=== PATIENT | male | born 1990 | race Caucasian/White ===

== ENCOUNTER 2023-07-26 17:13 | Emergency (ER) | payer BC, SELFPAY ==
[2023-07-26 17:14] VITALS: BP 163/116; PULSE 96; RESP 18; TEMP 36.1; O2SAT 98; BMI 30.8
--- NOTE | 2023-07-26 17:23 | US_ITS ---
We are attempting to reach an attending provider to discuss findings. An addendum with communication details will be sent when the communication is complete. EXAM: US right lower extremity venous Doppler. HISTORY: RT UPPER CALF PAIN LIMITATIONS: None. THROMBUS: None. AUGMENTATION: Normal. FLUID COLLECTIONS: None. SUPERFICIAL VEINS: Thrombosis of multiple superficial veins in the upper calf. OTHER: None. CONCLUSION: Thrombosis of multiple superficial veins in the upper calf. No evidence of deep venous thrombosis of the right lower extremity. Electronically Signed: Geovanni Pavon MD at 18:32 EDT , US/Venous Duplex Imag/Limited/Uni IMPRESSION: undefined
--- NOTE | 2023-07-26 17:24 | ED.VIS.LOWEX ---
HPI History of Present Illness Chief Complaint: Lower Extremity Injury Narrative Narrative: 33-year-old male past medical history of varicose to the his right lower extremity presents with pain, swelling, and mild redness of his medial right calf that he has had for days, up to a week. He denies any recent trauma. He is having pain over the area of his known varicose vein, radiating downward. He denies any fevers or chills, no chest pain or shortness of breath, no exacerbating or alleviating factors. PFSH PFSH Medical History no medical history Home Medications NK 07/26/23 [History Last Taken Unknown] Allergy/AdvReac Type Severity Reaction Status Date / Time No Known Allergies Allergy Verified 07/26/23 17:15 Social History Smoking Status: Never smoker ROS ROS ED ROS Narrative Constitutional: No fever, no chills. HEENT: No sore throat. No neck pain. No loss of vision. No rhinorrhea. Cardiovascular: No chest pain. No palpitations. No pedal edema. Respiratory: No cough, no shortness of breath. Abdominal: No abdominal pain. No nausea. No vomiting. Genitourinary: No dysuria. No hematuria. Musculoskeletal: No myalgias. No arthralgias. Right medial proximal calf pain in area of varicose vein radiating downward. Neurologic: No headaches. No dizziness. No lightheadedness. Skin: No rash. No change in color. Psychiatric: No depression. No anxiety. EXAM Physical Exam Narrative Exam Narrative: Afebrile. Vital signs noted. HEENT: Normocephalic. Atraumatic. PERRL, EOMI. Neck soft and supple. No point tenderness or step off. Cardiovascular: Regular rate and rhythm. No murmurs, rubs, or gallops appreciated. Respiratory: No tachypnea. Lungs clear to auscultation bilaterally. Gastrointestinal: Abdomen soft, nontender, with normoactive bowel sounds. No rebound or guarding. Neurological: Awake. Alert. Nonfocal, nonlateralizing. Skin: No rash. Normal color. No pallor. Musculoskeletal: No pedal edema. Full range of motion extremities. Mild tenderness to palpation right medial calf proximally and area of a varicose vein with minimal erythema. Palpable dorsalis pedis pulse distally. Full range of motion of knee and ankle. No palpable tenderness right medial thigh. Const Vital Signs: 07/26/23 17:14 Temperature 96.9 F L Temperature Source Temporal Pulse Rate 96 Respiratory Rate 18 Blood Pressure 163/116 H Blood Pressure Mean 131 Pulse Ox 98 Oxygen Delivery Method Room Air MDM MDM MDM Narrative Medical decision making narrative: Concern is for superficial thrombophlebitis the varicose vein versus DVT. I am not concerned for pulmonary embolism at this point as he is not tachycardic, his pulse ox is 98% on room air and he does not have any chest pain or shortness of breath. I have low suspicion for cellulitis as there is no break in the skin. Ultrasound was obtained of the right lower extremity. I discussed the patient's results with the software support technician who states that there is no evidence of deep venous thrombosis, but there is moderate amount of superficial thrombophlebitis in the right medial proximal calf area where he is having pain. I discussed the patient with vascular surgeon, Dr. Lawrence Mcdonough. While he did suggest that the patient be placed on an anticoagulant for symptomatic relief, the patient does not wish to take a blood thinner at this time. Instead, he will take NSAIDs and apply warm compresses to the area and follow-up with vascular surgery for further evaluation and treatment. I feel he can be discharged safely home with follow-up. I stressed the importance of follow-up with vascular surgery. He will take [id number] medications for analgesia. I do not feel narcotics are indicated. Return instructions to the emergency department were reviewed. Disposition is discharged home in stable condition. History & Record Review Additional record(s) reviewed:: No prior records Discharge Plan Triage Chief Complaint: Lower Extremity Injury ED Provider: Iftikhar Connolly Dx/Rx/DC Orders Clinical Impression: Varicose veins of calf, Superficial thrombophlebitis of right leg Instructions: ED Thrombophlebitis, Superficial, ED Varicose Veins Prescriptions: No Action NK Primary Care Provider: Care Physician,No Primary Referrals: Lawrence Mcdonough MD [Med Staff - Active Staff] - 3-5 Days Care Physician,No Primary [Primary Care Provider] - Activity Restrictions/Additional Instructions: Take anti-inflammatories such as ibuprofen or naproxen for pain. Warm compresses to the affected area. Follow-up with Dr. Mcdonough within the next week. You have chosen not to take a blood thinner such as Eliquis or Xarelto at this time for your superficial thrombophlebitis. Disposition Disposition: Home, Self Care
[2023-07-26 18:36] VITALS: BP 126/77; PULSE 62; RESP 15; O2SAT 99
== END 2023-07-26 18:37 | disposition home or self-care (01) ==
LOC: ED 18:12
PROVIDERS: Emergency Provider Emergency Medicine; Visit Provider Emergency Medicine
DX: I80.01 Phlebitis and thrombophlebitis of superficial vessels of right lower extremity (principal)
CPT/HCPCS: 93971; 99282

== ENCOUNTER → 2023-10-05 | Outpatient (CLI) | payer BC, SELFPAY ==
--- NOTE | 2023-10-05 14:50 | VDLE_ITS ---
Reason For Study: Right leg pain RIGHT CFV is compressible, spontaneous, phasic, competent and demonstrates normal augmentation. FV is compressible, spontaneous, phasic, competent and demonstrates normal augmentation. POP V is compressible, spontaneous, phasic, competent and demonstrates normal augmentation. T/P Trunk is compressible. PTV is compressible. RT PerV is compressible. SFJ is INCOMPETENT and measures 1.09 x 1.25 cm. GSV proximal thigh measures 0.72 x 0.83 cm. GSV at knee measures 0.75 x 0.80 cm. GSV INCOMPETENT throughout for greater than 0.5 seconds. ASV at knee is INCOMPETENT for greater than 0.5 seconds and measures 0.47 x 0.46 cm. ASV at knee connects to SSV mid. Thrombus filled variscose veins are noted in the prox-mid calf. INCOMPETENT network project manager is noted 7 cm above the medial malleolus. SSV proximal calf is competent and measures 0.32 x 0.37 cm. Procedure This is a venous duplex using B-mode, color flow and spectral Doppler. Exam performed in department. Patient was scanned in reverse Trendelenburg position during reflux assessment. VL/Venous Duplex US, Unilateral Interpretation Summary Deep veins of the right lower extremity are patent and compressible segmentally . There is no evidence of right lower extremity deep vein thrombosis. The right great sapheno us vein appears patent and compressible segmentally. Positive for reflux in the right saphenofemoral junction, great saphenous vein throughout, accessory saphenous vein at knee, network project manager in distal calf. Superficial thrombosis noted in mid calf varicosities. Ordering Physician: Neelima Mccormick Performed By: Bita Dupree RVT
--- OUTSIDE RECORDS SUMMARY | 2023-10-05 15:14 | XMS RPT_ITS | CCD ---
Author Name Unknown Address [address] [place] [address] Organization [facility] Care Team Providers Care Gaggerman Name Role Phone Unavailable Primary Care Provider Unavailabl e Problems Problem Classification Problem Date Documented Da te Episodic/Chronic Other connective tissue disease (1 source) Pain in right lower limb; Translations: [Pain in right leg] 07-26-2023 Episodic Other connective tissue disease (1 source) Swelling of lower limb; Translations: [Other specified soft tissue disorders] 07-26-2023 Episodic Results Test Name Value Interpretation Reference Range Facil ity Vital Signs Date Time Vital Sign Value Performing Clinician Faci lity 07-26-2023 16:59-0400 Body temperature 98.29 [degF] Diya Elena JAVA PROGRAMMER ANALYST.INDUSTRIAL RELATIONS DIRECTOR Work Phone: [facility] 07-26-2023 16:59-0400 Body weight 114.76 kg Diya Elena JAVA PROGRAMMER ANALYST.INDUSTRIAL RELATIONS DIRECTOR Work Phone: [facility] 07-26-2023 16:59-0400 Diastolic blood pressure 106 mm[Hg] Diya Elena JAVA PROGRAMMER ANALYST.INDUSTRIAL RELATIONS DIRECTOR Work Phone: [facility] 07-26-2023 16:59-0400 Heart rate 88 /min Diya Elena JAVA PROGRAMMER ANALYST.INDUSTRIAL RELATIONS DIRECTOR Work Phone: [facility] 07-26-2023 16:59-0400 Respiratory rate 18 /min Diya Elena JAVA PROGRAMMER ANALYST.INDUSTRIAL RELATIONS DIRECTOR Work Phone: [facility] 07-26-2023 16:59-0400 SaO2% (BldA) [Mass fraction] 98 % Diya Elena JAVA PROGRAMMER ANALYST.INDUSTRIAL RELATIONS DIRECTOR Work Phone: [facility] 07-26-2023 16:59-0400 Systolic blood pressure 159 mm[Hg] Diyabj Elena JAVA PROGRAMMER ANALYST.INDUSTRIAL RELATIONS DIRECTOR Work Phone: [facility] Encounters Encounter Date Encounter Type Care Provider Facility Start: 07-26-2023 End: 07-26-2023 ambulatory Facility:[facility] Start: 07-26-2023 End: 07-26-2023 Patient encounter procedure Diya Elena APRN.INDUSTRIAL RELATIONS DIRECTOR Work Phone: [facility] Care Plan of Treatment Date Care Activity Detail Author Start: 06-01-2023 Influenza vaccination Influenza Vacc ine (#1) [facility] Start: 10-01-2022 Depression Assessment Depression Ass essment [facility] Start: 2009 Urine microalbumin profile DTa P,Tdap,Td Vaccine (1 - Tdap) [facility] Start: 01-08-2008 Hepatitis C Screening Hepatitis C Sc reening [facility] Start: 01-08-2008 HIV Screening HIV Screening [facility] Start: 1990 Covid-19 Vaccine (#1) Covid-19 Vacci ne (#1) [facility] Start: 1990 Hepatitis B Vaccine (1 of 3 - 3-dose series) Hepatitis B Vaccine (1 of 3 - 3-dose series) [facility] Payers Date Payer Category Payer Unknown PENDING 2022 Unknown ANTHEM BLUE CARD POS OOS [id number] 2022-Present [phone] [address] [place] [address] POS [id number] Social History Date Type Detail Facility Start: 07-26-2023 Tobacco smoking stat us NHIS Never smoked tobacco [facility] Start: 07-26-2023 Tobacco use and exposure Smoke less tobacco non-user [facility] Start: 07-26-2023 History of Social function [facility] Start: 07-26-2023 Tobacco use panel [facility] Start: 1990 Sex Assigned At Not on file [facility] Progress note 07-26-2023 Note Date & Type Note Facility 07-26-2023 Note HNO ID: [id number] Author: Diya Elena APRN.CNP Service: ? Author Type: Nurse Practitioner Type: Progress Notes Filed: 07/26/2023 5:09 PM Note Text: 33 year old male with no PMH presents for right leg pain. Acute onset one week ago Endorses he noticed varicose vein increased with bugling. +redness +leg swelling Denies trauma or injury Denies CP or SOB Concerns for possible DVT. US imaging not available at time of exam. Declines virtual ist related to co pay cost when he will present to [facility] History of Present illness Narrative 07-26-2023 Diya Elena APRN.CNP - 07/26/2023 5:07 PM EDT Note Date & Type Note Facility 07-26-2023 History of Presen t illness Narrative 33 year old male with no PMH presents for right leg pain. Acute onset one week ago Endorses he noticed varicose vein increased with bugling. +redness +leg swelling Denies trauma or injury Denies CP or SOB Concerns for possible DVT. US imaging not available at time of exam. Declines virtual ist related to co pay cost when he will present to [facility] documented in this encounter [facility] Evaluation note Note Date & Type Note Facility documented in this encounter [facility] Summary Purpose Family History No Family History Records Found Advance Directives No Advanced Directives Records Found Additional Source Comments Source Comments (unrecognize d section and content) In the event this informatio n is protected by the Federal Confidentiality of Alcohol and Drug Abuse Patient Records regulations: The Federal rules restrict any use of the information to criminally investigate or prosecute any alcohol or drug abuse patient.[facility] Reason for Visit (unrecogniz ed section and content) (unrecognized sect ion and content) No Status Records Found INFORMATION SOURCE (unrecogn ized section and content) FOR RECORDS PERTAINING TO PATIENTS WHO ARE OR HAVE BEEN ENROLLED IN A CHEMICAL DEPENDENCY/SUBSTANCEABUSE PROGRAM, SOME INFORMATION MAY BE OMITTED. This clinical summary was aggregated from multiple sources. Caution should be exercised in using it in the provision of clinical care. This summary normalizes information from multiple sources, and as a consequence, information in this document may materially change the coding, format and clinical context of patient data. In addition, data may be omitted in some cases. CLINICAL DECISIONS SHOULD BE BASED ON THE PRIMARY CLINICAL RECORDS. [facility] [employer] [facility]. provides no warranty or guarantee of the accuracy or completeness of information in this document.
== END | disposition home or self-care (01) ==
PROVIDERS: Referring Provider Physician Assistant; Visit Provider Physician Assistant
DX: I80.01 Phlebitis and thrombophlebitis of superficial vessels of right lower extremity (principal)
CPT/HCPCS: 93971

== ENCOUNTER 2023-11-22 06:54 | Day surgery (SDC) | payer BC, SELFPAY ==
[2023-11-21 09:24] VITALS: BMI 30.8
--- OUTSIDE RECORDS SUMMARY | 2023-11-22 06:57 | XMS RPT_ITS | CCD ---
Author Name Unknown Address [address] [place] [address] Organization [facility] Care Team Providers Care Furnace Converter Name Role Phone Unavailable Primary Care Provider [...] 16:59-0400 Body temperature 98.29 [degF] Diya Elena SNACK BAR ATTENDANT.SECOND WORKER Work Phone: [facility] 07-26-2023 16:59-0400 Body weight 114.76 kg Diya Elena SNACK BAR ATTENDANT.SECOND WORKER Work Phone: [facility] 07-26-2023 16:59-0400 Diastolic blood pressure 106 mm[Hg] Idya Elena SNACK BAR ATTENDANT.SECOND WORKER Work Phone: [facility] 07-26-2023 16:59-0400 Heart rate 88 /min Diya Elena SNACK BAR ATTENDANT.SECOND WORKER Work Phone: [facility] 07-26-2023 16:59-0400 Respiratory rate 18 /min Diya Elena SNACK BAR ATTENDANT.SECOND WORKER Work Phone: [facility] 07-26-2023 16:59-0400 SaO2% (BldA) [Mass fraction] 98 % Diya Elena SNACK BAR ATTENDANT.SECOND WORKER Work Phone: [facility] 07-26-2023 16:59-0400 Systolic blood pressure 159 mm[Hg] Diyabj Elena SNACK BAR ATTENDANT.SECOND WORKER Work Phone: [facility] Encounters Encounter Date Encounter Type Care Provider Facility Start: 07-26-2023 End: 07-26-2023 ambulatory Facility:[facility] Start: 07-26-2023 End: 07-26-2023 Patient encounter procedure Diya Elena APRN.SECOND WORKER Work Phone: [facility] Care Plan of Treatment Date Care Activity Detail Author Start: 06-01-2023 Influenza vaccination Influenza Vacc ine (#1) [facility] Start: 10-01-2022 Depression Assessment Depression Ass essment [facility] Start: 2009 Urine microalbumin profile DTa P,Tdap,Td Vaccine (1 - Tdap) [facility] Start: 01-08-2008 Hepatitis C Screening Hepatitis C Sc reening [facility] Start: 01-08-2008 HIV Screening HIV Screening [facility] Start: 1990 Covid-19 Vaccine (#1) Covid-19 Vacci ne (#1) [facility] Start: 1990 Hepatitis B Vaccine (1 of 3 - 3-dose series) Hepatitis B Vaccine (1 of 3 - 3-dose series) [facility] Payers Date Payer Category Payer Unknown PENDING 2022 Unknown ANTHEM BLUE CARD POS OOS [id number] 2022-Present [phone] [address] [place] [address] POS [id number] Social History Date Type Detail Facility Start: 07-26-2023 Tobacco smoking stat us NHIS Never smoked tobacco [facility] Start: 07-26-2023 Tobacco use and exposure Smoke less tobacco non-user [facility] Start: 07-26-2023 History of Social function [facility] Start: 07-26-2023 Tobacco use panel [facility] Start: 1990 Sex Assigned At Not on file [facility] Progress note 07-26-2023 Note Date & Type Note Facility 07-26-2023 Note HNO ID: [id number] Author: Diya Elena APRN.CNP Service: ? Author [...] pay cost when he will present to [facility] History of Present illness Narrative 07-26-2023 Diya [...] pay cost when he will present to [facility] documented in this encounter [facility] Evaluation note Note Date & Type Note Facility documented in this encounter [facility] Summary Purpose Family History No Family History [...] or prosecute any alcohol or drug abuse patient.[facility] Reason for Visit (unrecogniz ed section and [...] BE BASED ON THE PRIMARY CLINICAL RECORDS. [facility] [employer] [facility]. provides no warranty or guarantee of the accuracy or completeness of information in this document.
[2023-11-22 07:05] LABS: Hematocrit 48.3 % (40-54); Hemoglobin 15.5 g/dL (13.0-16.5); Mean Corp Hgb Conc 32.1 g/dL (32-36); Mean Corpuscular Volume 87.3 fL (80-94); Mean Platelet Vol. 9.7 fl (6.2-12.0); Platelet Count 259 K/mm3 (150-450); RBC Distribution Width CV 13.2 % (11.6-14.6); RBC Distribution Width SD 42.1 fl (35.1-43.9); Red Blood Count 5.53 M/mm3 (4.6-6.2); White Blood Count 7.1 K/mm3 (4.4-11.0)
[2023-11-22 07:18] LABS: Anion Gap 2 (5-15); BUN 19 mg/dL (7-18); Calcium,Total 8.8 mg/dL (8.5-10.1); Chloride 111 mmol/L (98-107); Creatinine, Serum 1.46 mg/dL (0.70-1.30); EST Glomerular Filtration Rate 59 mL/min (>60); Est Glom Filt Rate - Afr Amer 71 mL/min (>60); Estimated Creatinine Clearance 99.74 ml/min; Glucose 104 mg/dL (74-106); Sodium Level 142 mmol/L (136-145)
--- NOTE | 2023-11-22 08:58 | PCM.HP.STD ---
HPI - General HPI Narrative DONNY HAMM, is a 33 M who presents with recurrent right lower extremity superficial phlebitis, saphenous reflux throughout and appeals court associate justice reflux in the calf. He would be an ideal candidate for glue ablation but unfortunately his insurance will not approve chemical ablation under any circumstances. He elects to proceed with RF ablation of thigh GSV. [facility] Medical History Femur fracture (~1998) Home Medications NK 11/22/23 [History Last Taken Unknown] Allergy/AdvReac Type Severity Reaction Status Date / Time No Known Allergies Allergy Verified 10/15/23 15:07 Family History Other High cholesterol Hypertension Social History Smoking Status: Never smoker ROS Constitutional Constitutional: Denies chills, fever(s), frequent falls, lethargy or weakness Eyes Eyes: Denies blind spots, change in vision or loss of vision ENT HEENT: Denies bleeding gums, hoarseness or sore throat Cardiovascular Cardiovascular: Denies abdominal pain, bluish discoloration of hand/feet, chest pain with activity, claudication, cold extremities, cyanosis, dyspnea on exertion, erythema on extremities, irregular heart rhythm, leg edema, leg ulcers, numbness in extremities or weakness in extremities Respiratory/Chest Respiratory/Chest: Denies cough, excessive phlegm production, shortness of breath at rest, shortness of breath with exertion or wheezing Gastrointestinal Gastrointestinal: Denies anorexia, change in stool character, constipation, diarrhea, melena or rectal bleeding Genitourinary Genitourinary: Denies dysuria or hematuria Musculoskeletal Musculoskeletal: Denies abnormal gait Integumentary Integumentary: Reports other Details: ; Denies erythema, non-healing lesions or wounds Neurologic Neurologic: Denies abnormal speech, focal weakness, headache(s), loss of vision, numbness, paresthesias or sensory deficit Hematologic/Lymphatic Hematologic/Lymphatic: Denies easy bleeding, easy bruising or lymphadenopathy Vital Signs Vital Signs Vital Signs: Weight Weight: 253 lb Body Mass Index (BMI) 30.8 Physical Exam Const alert, oriented x3, no apparent distress and healthy appearing General Appearance: cooperative; Negative for combative or lethargic Orientation / Consciousness: awake Exam Limitations: no limitations HEENT Head and Scalp: normocephalic and atraumatic Eyes EOMs intact bilaterally General Eye: normal appearance of both eyes Neck full ROM, no lymphadenopathy, thyroid normal and No no carotid bruits General: trachea midline; Negative for lymphadenopathy or tenderness Thyroid: thyroid normal Lymph Lymphatic: Negative for no lymphadenopathy noted Resp normal respiratory effort and no use of accessory muscles Effort and Inspection: Negative for labored, stridor or audible wheezes Cardio regular rate and regular rhythm Peripheral Pulses: posterior tibial pulses present and dorsalis pedis pulses present Back/Spine Cervical Spine: cervical ROM normal Extremity full ROM, normal capillary refill and no clubbing, cyanosis or edema Skin no rashes or lesions noted and no wounds Neuro oriented x3, CN's II-XII intact bilaterally, no focal motor deficits and no sensory deficits noted Psych thought process normal, cooperative, affect normal, speech normal and activity/motor behavior normal Results Lab / Micro Data 11/22/23 06:58 11/22/23 06:58 Labs: Laboratory Results - last 24 hr 11/22/23 06:58: WBC 7.1, RBC 5.53, Hgb 15.5, Hct 48.3, MCV 87.3, MCH 28.0, MCHC 32.1, RDW Std Deviation 42.1, RDW Coeff of Elke 13.2, Plt Count 259, MPV 9.7, Sodium 142, Potassium 4.0, Chloride 111 H, Carbon Dioxide 29.0, Anion Gap 2 L, BUN 19 H, Creatinine 1.46 H, Estim Creat Clear Calc 99.74, Est GFR (MDRD) Af Amer 71, Est GFR (MDRD) Non-Af 59 L, BUN/Creatinine Ratio 13.0, Glucose 104, Calcium 8.8 Assessment & Plan Assessment/Plan (1) Varicose vein of lower extremity with phlebitis: PLAN: -right GSV RF ablation
--- NOTE | 2023-11-22 10:32 | OP.PCM_ITS ---
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 He was denied coverage of goal ablation so he presents now for radiofrequency ablation of the thigh great saphenous vein. Description of procedure: Upon the obtaining informed consent and verification correct patient procedure site patient in the Nutrition Manager where he was positioned prepped and draped in usual sterile fashion. Timeout was performed consultation administered Versed and fentanyl. Great saphenous vein was evaluated with ultrasound and found to be appropriate size and depth throughout its course. Skin overlying the great saphenous vein proximal calf was anesthetized with 1% lidocaine the vessel accessed with micropuncture needle and wire. This then exchanged out for the 7 Latvian ablation sheath. Through the ablation sheath the radiofrequency ablation probe was advanced under ultrasound guidance and positioned inferior to the saphenofemoral junction. Longitudinal positioning of the ultrasound probe was utilized and measurement obtained confirming 2.8 cm from saphenofemoral junction to the probe tip. Tumescent solution was then injected along the course of the great saphenous vein probe position again confirmed. This was then activated sequentially along the length of the treatment zone down to the sheath. The sheath and ablation catheter then withdrawn and manual pressure held for 5 minutes after which satisfactory stasis was noted. Dry sterile dressing and Henri wrap were then applied and patient was taken to the recovery room with anticipated discharge to home
== END 2023-11-22 11:15 | disposition home or self-care (01) ==
PROVIDERS: Referring Provider Surgery Trauma Surgery; Visit Provider Surgery Trauma Surgery
DX: I80.01 Phlebitis and thrombophlebitis of superficial vessels of right lower extremity (principal); I83.91 Asymptomatic varicose veins of right lower extremity
CPT/HCPCS: 36415; 36475; 80048; 85027; 99152; 99153; C1769; C1888; C1894; J7030; J7040

== ENCOUNTER → 2023-11-26 | Outpatient (CLI) | payer BC, SELFPAY ==
--- NOTE | 2023-11-26 08:54 | VDLE_ITS ---
Reason For Study: S/P Ablation Rt GSV RIGHT LEFT Rt GSV appears dilated and NONCOMPRESSIBLE CFV is compressible, spontaneous, phasic, with intraluminal echoes from approximately competent, and demonstrates normal 1cm distal to SFJ down to the knee. Tortuous augmentation. varicosities/ASV at prox calf also seen as dilated and NONCOMPRESSIBLE. Findings are consistent with recent ablation. CFV is compressible, spontaneous, phasic, competent and demonstrates normal augmentation. FV is compressible, spontaneous, phasic, competent and demonstrates normal augmentation. POP V is compressible, spontaneous, phasic, competent and demonstrates normal augmentation. T/P Trunk is compressible. PTV is compressible. RT PerV is compressible. Procedure This is a venous duplex using B-mode, color flow and spectral Doppler. Exam performed in department. The exam was diagnostic. VL/Venous Duplex US, Unilateral Interpretation Summary Deep veins of the right lower extremity are patent and compressible segmentally . There is no evidence of right lower extremity deep vein thrombosis. Right great saphenous vein and accessory saphenous vein occluded consistent wit h recent ablation Ordering Physician: Neelima Mccormick Referring Physician: N/A Performed By: Hao Simpson RVT
--- OUTSIDE RECORDS SUMMARY | 2023-11-26 09:13 | XMS RPT_ITS | CCD ---
Author Name Unknown Address [email or web address] [place] [address] Organization [facility] Care Team Providers Care Book Trimmer Name Role Phone Unavailable Primary Care Provider [...] 16:59-0400 Body temperature 98.29 [degF] Diya Elena RENEWABLE ENERGY CONSULTANT.JR. JAVA DEVELOPER Work Phone: [facility] 07-26-2023 16:59-0400 Body weight 114.76 kg Diya Elena RENEWABLE ENERGY CONSULTANT.JR. JAVA DEVELOPER Work Phone: [facility] 07-26-2023 16:59-0400 Diastolic blood pressure 106 mm[Hg] Diya Elena RENEWABLE ENERGY CONSULTANT.JR. JAVA DEVELOPER Work Phone: [facility] 07-26-2023 16:59-0400 Heart rate 88 /min Diya Elena RENEWABLE ENERGY CONSULTANT.JR. JAVA DEVELOPER Work Phone: [facility] 07-26-2023 16:59-0400 Respiratory rate 18 /min Diya Elena RENEWABLE ENERGY CONSULTANT.JR. JAVA DEVELOPER Work Phone: [facility] 07-26-2023 16:59-0400 SaO2% (BldA) [Mass fraction] 98 % Diya Elena RENEWABLE ENERGY CONSULTANT.JR. JAVA DEVELOPER Work Phone: [facility] 07-26-2023 16:59-0400 Systolic blood pressure 159 mm[Hg] Diyabj Elena RENEWABLE ENERGY CONSULTANT.JR. JAVA DEVELOPER Work Phone: [facility] Encounters Encounter Date Encounter Type Care Provider Facility Start: 07-26-2023 End: 07-26-2023 ambulatory Facility:[facility] Start: 07-26-2023 End: 07-26-2023 Patient encounter procedure Diya Elena APRN.JR. JAVA DEVELOPER Work Phone: [facility] Plan of Treatment Date Care Activity Detail Author Start: 06-01-2023 Influenza vaccination Influenza Vacc ine (#1) [facility] Start: 10-01-2022 Depression Assessment Depression Ass essment [facility] Start: 2009 Urine microalbumin profile DTa P,Tdap,Td Vaccine (1 - Tdap) [facility] Start: 01-08-2008 Hepatitis C Screening Hepatitis C Sc reening [facility] Start: 01-08-2008 HIV Screening HIV Screening [facility] Start: 1990 Covid-19 Vaccine (#1) Covid-19 Vacci ne (#1) [facility] Start: 1990 Hepatitis B Vaccine (1 of 3 - 3-dose series) Hepatitis B Vaccine (1 of 3 - 3-dose series) [facility] Payers Date Payer Category Payer Unknown PENDING 2022 Unknown [employer] CARD POS OOS [id number] 2022-Present [phone] [id number] [place] [address] POS [id number] Social History Date Type Detail Facility Start: 07-26-2023 Tobacco smoking stat us NHIS Never smoked tobacco [facility] Start: 07-26-2023 Tobacco use and exposure Smoke less tobacco non-user [facility] Start: 07-26-2023 History of Social function [facility] Start: 07-26-2023 Tobacco use panel [facility] Start: 1990 Sex Assigned At Not on file [facility] Progress note 07-26-2023 Note Date & Type Note Facility 07-26-2023 Note HNO ID: [id number] Author: Diya Elena APRN.CNP Service: ? Author [...] pay cost when he will present to [facility] History of Present illness Narrative 07-26-2023 Diya [...] pay cost when he will present to [facility] documented in this encounter [facility] Evaluation note Note Date & Type Note Facility documented in this encounter [facility] Summary Purpose Family History No Family History [...] or prosecute any alcohol or drug abuse patient.[facility] Reason for Visit (unrecogniz ed section and [...] BE BASED ON THE PRIMARY CLINICAL RECORDS. [facility] [employer] [facility]. provides no warranty or guarantee of the accuracy or completeness of information in this document.
== END | disposition home or self-care (01) ==
PROVIDERS: Referring Provider Physician Assistant; Visit Provider Physician Assistant
DX: I83.11 Varicose veins of right lower extremity with inflammation (principal); I80.01 Phlebitis and thrombophlebitis of superficial vessels of right lower extremity; M79.604 Pain in right leg
CPT/HCPCS: 93971